=== PATIENT | male | born 1995 ===

== ENCOUNTER 2017-10-08 14:24 | Emergency (ER) | payer OTHER ==
--- NOTE | 2017-10-08 14:26 | UC ---
Skin Complaint HPI - HPI Summary HPI Summary: 21 yo WM presents with tick bite to right thigh. He tells me that yesterday he noticed the tick and thinks it was on him "maybe an hour". He pulled it off. Today noticed some redness to the area and wanted to get it checked out. - History of Current Complaint Time Seen by Provider: 10/08/17 14:26 Stated Complaint: TICK BITE Hx Obtained From: Patient Onset/Duration: Sudden Onset Current Severity: None - Allergy/Home Medications Allergies/Adverse Reactions: Allergies Allergy/AdvReac Type Severity Reaction Status Date / Time No Known Allergies Allergy Verified 10/08/17 14:29 Home Medications: Home Medications NK [No Home Medications Reported] 10/08/17 [History Confirmed 10/08/17] Review of Systems Constitutional: Negative Skin: Other - Tick bite Eyes: Negative ENT: Negative Respiratory: Negative Cardiovascular: Negative Gastrointestinal: Negative Neurovascular: Negative Neurological: Negative Psychological: Negative All Other Systems Reviewed And Are Negative: Yes PMH/Surg Hx/FS Hx/Imm Hx - Additional Past Medical History Additional PMH: None Previously Healthy: Yes Other History Of: Negative For: HIV, Hepatitis B, Hepatitis C, Anticoagulant Therapy - Surgical History Surgical History: Yes Surgery Procedure, Year, and Place: tonsilectomy - Family History Known Family History: Positive: None - Social History Occupation: Student Lives: Dormitory/Roommates Alcohol Use: Weekly Substance Use Type: Marijuana Substance Use Comment - Amount & Last Used: couple times a week Smoking Status (MU): Never Smoked Tobacco - Immunization History Most Recent Influenza Vaccination: not this year Most Recent Tetanus Shot: UTD Vaccination Up to Date: Yes Physical Exam - Summary Physical Exam Summary: GENERAL: NAD. WDWN. No pain distress. SKIN: Right inner thigh there is a 3mm diameter of mild erythema with central 1mm area of superficial skin loss. No streaking, bleeding, or drainage. No remaining tick appreciated NECK: Supple. Nontender. No lymphadenopathy. CHEST: No accessory muscle use. Breathing comfortably and in no distress. CV: RRR. Without m/r/g. NEURO: Alert. CN II-XII grossly intact. PSYCH: Age appropriate behavior. Triage Information Reviewed: Yes Course/Dx - Course Course Of Treatment: Tick bite to right thigh. Pt is confident tick was on him less than 1 hour and was not engorged when he removed it. Site appears to have minimal local skin reaction. No treatment at this time - Diagnoses Provider Diagnoses: Tick bite right thigh Discharge - Sign-Out/Discharge Documenting (check all that apply): Discharge/Admit/Transfer - Discharge Plan Condition: Stable Disposition: HOME Patient Education Materials: Tick Bite (ED) Referrals: Cj Campos MD [Primary Care Provider] - Additional Instructions: TICK BITE: You have been bitten by a tick. Once the tick is removed, these "bites" usually cause no problems. Tick fever, tick paralysis, [place] Spotted fever, and Lyme disease are uncommon -- but you should mention this tick bite to your doctor if you develop unusual symptoms in the next several weeks. If you develop any of the following, please see your physician promptly: (1) Fever, chills, or generalized malaise associated with a headache. (2) A red round area at the site of the bite (or elsewhere) (3) Joint pain, joint swelling or generalized weakness. (4) Redness, swelling, or drainage at the site of the bite. - Billing Disposition and Condition Condition: STABLE Disposition: HOME
[2017-10-08 14:32] VITALS: BP 125/90
== END 2017-10-08 14:44 | disposition home or self-care (01) ==
LOC: UCEAST 14:24
DX: S70.361A Insect bite (nonvenomous), right thigh, initial encounter (principal); W57.XXXA Bitten or stung by nonvenomous insect and other nonvenomous arthropods, initial encounter; Y93.9 Activity, unspecified; Y92.9 Unspecified place or not applicable
CPT/HCPCS: 99211; G0463